=== PATIENT | male | born 1975 | race Caucasian/White ===

== ENCOUNTER 2018-05-19 17:03 | Inpatient (IN) | payer OTHER ==
[~2018-05-19] VITALS: Ht 185.4 cm; Wt 79.4 kg
[~2018-05-19 17:03] MED LIST: ALB6.7R INH; CETI10CA8 PO; FLUT16SP19 NS; MONT10TA PO
[2018-05-19] MEDS ORDERED: DIAZEPAM 2 MG TAB PO ONE (17:15)
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
[2018-05-19 21:23] VITALS: BP 140/94
[2018-05-19] MEDS ORDERED: MORPHINE 2 MG/ML SYR IVP PRN (21:40)
[2018-05-19] MEDS ORDERED: APAP/HYDROCODONE 325/5 TAB PO PRN (21:40)
[2018-05-19] MEDS ORDERED: ONDANSETRON 4 MG TAB PO PRN (21:45)
[2018-05-19] MEDS ORDERED: FLUSH 10 ML SYR IVP PRN (21:45)
[2018-05-19] MEDS ORDERED: ONDANSETRON 4 MG/2 ML VIAL IVP PRN (21:45)
[2018-05-19] MEDS ORDERED: LORA1TAB69 PO (22:08)
[2018-05-20] VITALS (15 sets, daily range): BP systolic 128–146; BP diastolic 79–99; Ht 185.4 cm; Wt 79.4 kg
[2018-05-20] MEDS: D5 1/2 NS(*) 1000 ML BAG 1,000 ML IV PRN ×2 (00:07→10:37)
[2018-05-20] MEDS ORDERED: ACETAMINOPHEN(*)1000 MG/100 ML 100 ML IVPB PRN ×2 (06:45→16:35)
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
[2018-05-20] MEDS ORDERED: FAMOTIDINE(*) 20MG/50ML PREMIX 50 ML IVPB ONE (09:55)
[2018-05-20] MEDS ORDERED: NORMOSOL R SOLN(*) 1000 ML BAG 1,000 ML IV ONE (09:55)
[2018-05-20] MEDS ORDERED: fentaNYL CITR 250 MCG/5 ML AMP ONE (11:29)
[2018-05-20] MEDS ORDERED: PROPOFOL EMUL(*) 10MG/ML 20 ML 20 ML ONE (11:30)
[2018-05-20] MEDS ORDERED: ONDANSETRON 4 MG/2 ML VIAL ONE (11:30)
[2018-05-20] MEDS ORDERED: LIDOCAINE MPF 1% 5 ML VIAL ONE (11:30)
[2018-05-20] MEDS ORDERED: REMIFENTANIL HCL 1 MG VIAL ONE ×2 (11:37→15:03)
[2018-05-20] MEDS ORDERED: NS 0.9% 20 ML SDV 40 ML ONE (13:52)
[2018-05-20] MEDS ORDERED: PROPOFOL EMUL(*) 10MG/ML 20 ML 60 ML ONE ×2 (13:52→14:42)
[2018-05-20] MEDS ORDERED: MIDAZOLAM 2 MG/2 ML VIAL ONE (13:58)
[2018-05-20] MEDS ORDERED: ceFAZolin(*) 2GM/D5W 50ML 50 ML IVPB ONE (14:00)
[2018-05-20] MEDS ORDERED: KETAMINE HCL 200 MG/20 ML MDV ONE (14:18)
[2018-05-20] MEDS ORDERED: ACETAMINOPHEN(*)1000 MG/100 ML 100 ML IVPB ONE (14:23)
--- NOTE | 2018-05-20 16:01 | RADIOLOGY IMAGING REPORT ---
FACILITY: [facility] - [place] PATIENT NAME: Parish Bullock : 1975 MR: [id number] V: [id number] EXAM DATE: ORDERING PHYSICIAN: REBECCA KELLY TECHNOLOGIST: Location: [facility] - [place] Patient: Parish Bullock : 1975 Visit/Account:[id number] Date of Sevice: 05/20/2018 CERVICAL SPINE 1 VIEW COMPARISONS: CT cervical spine dated 05/19/2018 ADDITIONAL PERTINENT HISTORY: C6-C7 disc herniation with fusion. FINDINGS: First lateral image of the cervical spine demonstrate surgical instruments along the anterior margin of the disc space at C6-C7. The second image demonstrates anterior interbody fusion of C6-C7. Align ment is unchanged between the 2 images. No acute appearing bony abnormalities. Surrounding soft tissues are grossly unremarkable. IMPRESSION: 1. Patient status post anterior interbody fusion of C6-C7. 2. No acute appearing bony abnormalities. Report Dictated By: Yunier Leonard MD at 05/20/2018 3:54 PM Report E-Signed By: Yunier Leonard MD at 05/20/2018 3:57 PM WSN:[email or web address]
[2018-05-20] MEDS ORDERED: APAP/HYDROCODONE 325/5 TAB PO PRN (16:30)
[2018-05-20] MEDS ORDERED: fentaNYL CITR 100 MCG/2 ML AMP ONE (16:34)
[2018-05-20] MEDS ORDERED: DIAZEPAM 5 MG TAB PO PRN (16:35)
[2018-05-20] MEDS ORDERED: ACETAMINOPHEN 500 MG TAB PO PRN (16:35)
[2018-05-20] MEDS ORDERED: HYDROmorphone HCL 2 MG/ML SDV IVP PRN (16:35)
[2018-05-20] MEDS ORDERED: MAGNESIUM HYDROXIDE* 30ML UDCP PO PRN (16:35)
[2018-05-20] MEDS ORDERED: diphenhydrAMINE 25 MG CAP PO PRN (16:35)
[2018-05-20] MEDS ORDERED: LR(*) 1000 ML BAG 1,000 ML IV PRN (16:35)
[2018-05-20] MEDS ORDERED: BISACODYL 10 MG SUPP PR PRN (16:35)
[2018-05-20] MEDS ORDERED: FLUSH 10 ML SYR IVP PRN (16:35)
[2018-05-20] MEDS ORDERED: oxyCODONE HCL 5 MG CAP PO PRN (16:35)
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
[2018-05-20] MEDS: BENZOCAINE/MENTHOL 1 EACH LOZG PO PRN ×2 (17:51→20:53)
[2018-05-20] MEDS: DOCUSATE SODIUM 100 MG CAP PO SCH (20:53)
[2018-05-20] MEDS: ceFAZolin(*) 2GM/D5W 50ML 50 ML IVPB SCH (21:48)
[2018-05-21] MEDS: BENZOCAINE/MENTHOL 1 EACH LOZG PO PRN (02:57)
[2018-05-21 02:59] VITALS: BP 144/89
[2018-05-21] MEDS: ceFAZolin(*) 2GM/D5W 50ML 50 ML IVPB SCH ×2 (05:51→14:00)
[2018-05-21] MEDS ORDERED: ACETAMINOPHEN 500 MG TAB PO PRN (06:30)
[2018-05-21] MEDS ORDERED: LOR5/325 PO (07:23)
[2018-05-21] MEDS ORDERED: DOCU240C84 PO (07:24)
[2018-05-21 07:36] VITALS: BP 132/89
[2018-05-21] MEDS: DOCUSATE SODIUM 100 MG CAP PO SCH (09:00)
== END 2018-05-21 09:30 | disposition home or self-care (01) | DRG 473 ==
LOC: ER 17:15 → ICU 21:06 → MED 05-20 14:00
PROVIDERS: ADMIT Orthopaedic Surgery; ATTEND Orthopaedic Surgery
PROC: 0RT30ZZ Resection of Cervical Vertebral Disc, Open Approach (ICD-10-PCS; 2018-05-20)
PROC: 0RG10A0 Fusion of Cervical Vertebral Joint with Interbody Fusion Device, Anterior Approach, Anterior Column, Open Approach (ICD-10-PCS; principal; 2018-05-20 14:09)
DX: S12.590A Other displaced fracture of sixth cervical vertebra, initial encounter for closed fracture (principal); S12.690A Other displaced fracture of seventh cervical vertebra, initial encounter for closed fracture; M54.12 Radiculopathy, cervical region; S13.4XXA Sprain of ligaments of cervical spine, initial encounter; V18.0XXA Pedal cycle driver injured in noncollision transport accident in nontraffic accident, initial encounter; Y93.55 Activity, bike riding; Y99.8 Other external cause status; Z88.0 Allergy status to penicillin
CPT/HCPCS: 36415; 72020; 72125; 72141; 86850; 86900; 86901; 97161; 99284; C1713; J0131; J0690; J2001; J2250; J2405; J2704; J3010; J3490; J7050; L0172